=== PATIENT | female | born 2005 | race Hispanic/Latino ===

== ENCOUNTER 2025-07-01 08:25 | Emergency (ER) | payer BC ==
[~2025-07-01] VITALS: Ht 152.4 cm; Wt 49.9 kg
--- NOTE | 2025-07-01 09:05 | ERN ---
General Chief Complaint: Laceration/Avulsion Stated Complaint: LACERATION LEFT HAND Time Seen by MD: 08:27 History of Present Illness Initial Comments This is 20-year-old female who came to ED with laceration on left hand. Patient says that she was using knife to open something and accidentally the knife bumped into her left hand. She says that the knife went in deep and blood started oozing from the laceration. She used gauze to cover the laceration and came to ED for further evaluation. Allergies: Coded Allergies: No Known Allergies (Unverified Allergy, Unknown, 07/01/25) Past Medical History Past Medical History: No Pertinent History Past Surgical History: None Constitutional: (-) chills, (-) diaphoresis, (-) fever, (-) malaise, (-) weakness, (-) other documentation Respiratory: (-) cough, (-) orthopnea, (-) short of breath, (-) stridor, (-) wheezing, (-) other documentation Cardiovascular: (-) chest pain, (-) edema, (-) palpitations, (-) syncope, (-) dyspnea on exertion, (-) other documentation Gastrointestinal/Abdominal: (-) nausea, (-) vomiting, (-) diarrhea, (-) abdominal pain, (-) abdominal distention, (-) constipation, (-) rectal bleeding, (-) dark stool/melena, (-) other documentation Musculoskeletal: (+) muscle pain Review of Systems: was completed Nurses Notes Reviewed: Yes Physical Exam General Appearance: (+) no apparent distress; (-) apparent distress, (-) mild distress, (-) moderate distress, (-) severe distress, (-) thin, (-) obese, (-) combative, (-) cachetic, (-) anxious, (-) other documentation Orientation: (+) alert, (+) oriented x 3; (-) disoriented, (-) other documentation Head/Face Trauma: No Respiratory: (+) chest non-tender, (+) lungs clear, (+) well ventilated; (-) decreased breath sounds, (-) retractions, (-) abnormal breath sound, (-) crackles, (-) plerual rub, (-) rales, (-) rhonchi, (-) stridor, (-) wheezing, (- ) other documentation Heart: (+) regular, (+) no gallop; (-) murmur, (-) irregular, (-) bradycardia, (-) tachycardia, (-) systolic murmur, (-) diastolic murmur, (-) extra beats, (-) friction rub, (-) gallop/S3, (-) gallop/S4, (-) other documentation Extremities: (+) normal range of motion MDM MDM: Diagnosis: Laceration of left hand Patient is a 20-year-old female who came to ED with laceration of left hand. On examination laceration looks clean with no active bleeding, approximately 1 cm in length. We cleaned it, used Dermabond to approximate it. Patient said that she had her last tetanus dose in 2021. X-ray of hand shows no osseous abnormalities. She is hemodynamically stable to discharge home. ED Course Orders Procedure Category Date Status Time Dermabond (Dermabond) PHA 07/01/25 Complete 08:44 Hand 2+Vws Lt Limited RAD 07/01/25 Resulted 08:40 Naproxen (Naprosyn) PHA 07/01/25 Complete 09:00 Dermabond (Dermabond) PHA 07/01/25 Complete 09:30 Current Medications Medications (Trade) Dose Ordered Sig/Josh Route PRN Reason Start Time Stop Time Status Last Admin Dose Admin Naproxen (Naprosyn) 375 mg ONCE ONCE PO 07/01/25 09:00 07/01/25 09:01 DC 07/01/25 09:12 Octyl Cyanoacrylate (Dermabond) 1 each ONCE ONCE TP 07/01/25 09:30 07/01/25 09:31 DC 07/01/25 09:18 Octyl Cyanoacrylate (Dermabond) 1 each STK-MED ONCE TP 07/01/25 08:44 07/01/25 08:44 DC Vital Signs Date Time Temp Pulse Resp B/P (MAP) Pulse Ox O2 Delivery O2 Flow Rate FiO2 07/01/25 09:55 97.3 82 17 118/83 99 Room Air* 0 21 07/01/25 08:26 97.3 79 18 124/80 100 Room Air Laceration/Wound Repair Laceration/Wound Repair : Wound Location: upper extremity Wound Length (cm): 1 Wound's Depth, Shape: linear Wound Explored: no foreign body removed Betadine Prep?: Yes Wound Repaired With: Dermabond DX & DISP Disposition: Discharge Departure Impression: Primary Impression: Laceration of left hand without foreign body Condition: Stable Additional Instructions: You had laceration of left hand. The laceration is small and we used Dermabond to seal it. Do not lift weights with left hand. We will discharge you home, use [id number] pain medication as needed. Please follow-up with your PCP in 3-5 days. Referrals: SELF,REFERRAL (PCP) ATTESTATION BY PHYSICIAN I have seen and examined the patient. I reviewed the documentation, medical decision making, and treatment plan as noted by the resident provider above. I agree with the findings and plan of care. STEVE LAZO ADIL SHAH QUADRI MD Jul 01, 2025 09:05 STEVE LAZO DO Jul 01, 2025 18:08
[2025-07-01] MEDS: NAPROXEN 250 MG TAB PO ONE (09:12)
[2025-07-01] MEDS: OCTYL 2-CYANOACRYLATE 1 EACH TP ONE ×2 (09:15→09:18)
[2025-07-01 09:55] VITALS: BP 118/83; PULSE 82; RESP 17; TEMP 97.4; O2SAT 99
--- NOTE | 2025-07-01 09:57 | HMCIMG ---
EXAM: CR right Hand, 3 View. CLINICAL HISTORY: laceration on left hand COMPARISON: None provided. FINDINGS: BONES: No acute fracture or aggressive appearing osseous lesion. JOINTS: No evidence of dislocation. The joint spaces are normal. SOFT TISSUES: The soft tissues appear within normal limits. No radiopaque foreign body is seen. IMPRESSION: No acute pathology evident. No acute fracture or dislocation. /Flushing
== END 2025-07-01 09:56 | disposition home or self-care (01) ==
LOC: EDH 08:25
DX: S61.412A Laceration without foreign body of left hand, initial encounter (principal); W22.8XXA Striking against or struck by other objects, initial encounter; Y93.89 Activity, other specified; Y92.89 Other specified places as the place of occurrence of the external cause; Y99.8 Other external cause status
CPT/HCPCS: 12001; 73120; 99283